=== PATIENT | female | born 1995 | race African-American/Black ===

== ENCOUNTER 2016-07-18 09:13 | Emergency (ER) | payer OTHER ==
[~2016-07-18] VITALS: Ht 165.1 cm; Wt 150.0 kg
[~2016-07-18 09:13] MED LIST: BIOT1CAP8 PO; PRENTAB26 PO; [UNRECOGNIZED DRUG - CODE] PO
[2016-07-18 09:15] VITALS: TEMP 36.7; Ht 165.1 cm; Wt 150.0 kg
[2016-07-18] MEDS ORDERED: HYDR-3763 PO (10:22)
--- NOTE | 2016-07-18 10:38 | DIAGNOSTIC IMAGING REPORT ---
LEFT KNEE 3 VIEWS CLINICAL HISTORY: Fall with left knee pain. FINDINGS: AP, crosstable lateral, and sunrise views of the left knee are obtained. No prior studies are available for comparison at the time of dictation. The skeletal structures are well mineralized. No fracture is seen. The joint spaces of the knee are well-maintained. A calcified fabella is noted. No large joint effusion is identified. Mild prepatellar soft tissue edema is noted. IMPRESSION: Mild prepatellar soft tissue swelling. No fracture is identified. Electronically signed by: Tico Jeff M.D. 07/18/2016 10:37 AM Dictated Date/Time: 07/18/2016 10:36 AM
--- NOTE | 2016-07-18 11:37 | EMERGENCY ROOM VISIT NOTE ---
ED Visit Note First contact with patient: 09:20 Chief Complaint: LEFT Knee Injury History of Present Illness: This patient is a 21-year-old female who presents to the Emergency Department by private vehicle for evaluation of their LEFT Knee Injury. Patient states that they injured the knee while falling on the ice last evening striking the knee. They report no pain over the anterior aspect of the knee after landing directly on the knee. Pain is worse with ambulation. They deny any numbness or tingling into the distal extremity including the toes. They deny any pain extending into the affected foot or leg. Patient reports no previous fractures or surgeries of the affected knee. Patient rates her current discomfort as a 9/10. Patient has tried [id number]-[id number] medication and 1 Percocet for their pain with moderate relief of their symptoms. Medications: Reviewed and discussed with the patient. Allergies: No known allergies. PMH: No pertinent past medical history. 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 ROS: All pertinent positive and negative review of systems are appropriately documented in the History of Present Illness. Physical Exam: VITAL SIGNS - Vital signs and nursing notes were reviewed. GENERAL - 21-year-old female appearing her stated age and in noticeable discomfort throughout the exam. MUSCULOSKELETAL - LEFT knee without erythema, edema, and ecchymosis. Moderate tenderness to palpation appreciated over the anterior surface of the knee. +3/ 5 strength appreciated LEFT versus right secondary to patient discomfort. No posterior sag sign. RANGE OF MOTION: Greater than 90 Flexion with 0 Extension. PATELLAR APPREHENSION TEST: Positive reproduction of pain. VARUS/VALGUS STRESS: Unremarkable. HARPREET'S TEST: Without guarding. Strong Endpoint. ANTERIOR/POSTERIOR DRAWER TEST: Without guarding. Strong endpoint. NEUROLOGIC/VASCULAR - Neurovascularly intact distally with +3/5 dorsalis pedis pulses palpated bilaterally. Normal sensation to light and sharp touch appreciated distally. IMAGING: LEFT KNEE 3 VIEWS CLINICAL HISTORY: Fall with left knee pain. FINDINGS: AP, crosstable lateral, and sunrise views of the left knee are obtained. No prior studies are available for comparison at the time of dictation. The skeletal structures are well mineralized. No fracture is seen. The joint spaces of the knee are well-maintained. A calcified fabella is noted. No large joint effusion is identified. Mild prepatellar soft tissue edema is noted. IMPRESSION: Mild prepatellar soft tissue swelling. No fracture is identified. ED Course: Patient was seen and evaluated by myself. Patient was provided an ice pack for comfort. X-rays were obtained of the affected knee. Imaging results as above. Images were discussed and reviewed with the patient who acknowledges understanding. Patient was provided an Zkee Wrap. Patient will utilize over-the- counter medication for pain control at home. Patient educated on worrisome symptoms for return visit to the emergency department. Patient with follow-up with their primary care provided in 4-5 days if their symptoms are not improving. Patient discharged to home in good condition. Impression: LEFT Knee Contusion, Fall Discharge Instructions: You have been treated in the Emergency Department for Knee Contusion. For pain control, you can use the following ujuq-bkj-jezuofs medicines (if >12 yo): - Regular strength (325mg/tab) Tylenol (acetaminophen) 2 tabs every 4-6 hours as needed. Do not exceed 12 tablets in a 24 hour period. Avoid taking more than 4 grams (4000 mg) of Tylenol per day. This includes any other sources of acetaminophen you may take on a regular basis. - Regular strength (200 mg/tab) Advil (ibuprofen) 1-2 tabs every 4-6 hours as needed. Do not exceed a dose of 3200 mg per day. If this is a recent injury (<24 hrs), ice can be applied to the area of pain for the first 3 days to help decrease pain and inflammation. Ice massages can be performed by freezing water in a paper cup, peeling back the cup to expose the ice and then massaging over the affected area. Use the Zeke wrap for comfort for the next 4-5 days. Return to the Emergency Department if your current symptoms worsen despite treatment course outlined above. Current/Historical Medications Scheduled Beta Carotene (Beta Carotene), 1 CAP PO DAILY Biotin (Biotin), 1 CAP PO DAILY Scheduled PRN Hydrocodon/Acetaminophen 10MG/300MG (Vicodin Hp (10MG/300MG)), 1 TAB PO for Pain Allergies Coded Allergies: No Known Allergies (Unverified , 03/05/16) Vital Signs Date Time Temp Pulse Resp B/P Pulse Ox O2 Delivery O2 Flow Rate FiO2 07/18/16 11:51 88 20 102/50 100 07/18/16 09:15 36.7 85 16 135/84 98 Room Air Departure Information Impression Primary Impression: Knee contusion Dispostion Home / Self-Care Condition GOOD Referrals No Doctor, Assigned (PCP) Patient Instructions [facility] Additional Instructions You have been treated in the Emergency Department for Knee Contusion. For pain control, you can use the following bbxm-hbr-cyxjhbn medicines (if >12 yo): - Regular strength (325mg/tab) Tylenol (acetaminophen) 2 tabs every 4-6 hours as needed. Do not exceed 12 tablets in a 24 hour period. Avoid taking more than 4 grams (4000 mg) of Tylenol per day. This includes any other sources of acetaminophen you may take on a regular basis. - Regular strength (200 mg/tab) Advil (ibuprofen) 1-2 tabs every 4-6 hours as needed. Do not exceed a dose of 3200 mg per day. If this is a recent injury (<24 hrs), ice can be applied to the area of pain for the first 3 days to help decrease pain and inflammation. Ice massages can be performed by freezing water in a paper cup, peeling back the cup to expose the ice and then massaging over the affected area. Use the Zeke wrap for comfort for the next 4-5 days. Return to the Emergency Department if your current symptoms worsen despite treatment course outlined above. Problem Qualifiers Primary Impression: Knee contusion Encounter type: initial encounter Laterality: left Qualified Codes: S80.02XA - Contusion of left knee, initial encounter
[2016-07-18 11:51] VITALS: BP 102/50; PULSE 88; O2SAT 100
[2016-07-19] MEDS ORDERED: TRAM-10 PO (09:54)
== END 2016-07-18 11:55 | disposition home or self-care (01) ==
LOC: C.EDB 09:14 → C.EDC 11:55
DX: S80.02XA Contusion of left knee, initial encounter (principal); W00.0XXA Fall on same level due to ice and snow, initial encounter

== ENCOUNTER 2016-07-19 09:19 | Emergency (ER) | payer OTHER ==
[~2016-07-19] VITALS: Ht 165.1 cm; Wt 105.0 kg
[~2016-07-19 09:19] MED LIST changes: +HYDR-3763 PO; -PRENTAB26 PO
[2016-07-19 09:35] VITALS: BP 126/79; PULSE 84; TEMP 36.8; O2SAT 99; Ht 165.1 cm; Wt 105.0 kg
[2016-07-19] MEDS ORDERED: TRAM-10 PO (09:54)
--- NOTE | 2016-07-19 11:15 | EMERGENCY ROOM VISIT NOTE ---
History First contact with patient: 09:35 Chief Complaint: LEG PAIN,LEG INJURY Stated Complaint: LEFT LEG PAIN History of Present Illness The patient is a 21 year old female who presents to the Emergency Room with complaints of persistent pain with a left leg/knee injury that was evaluated in our facility on . The patient was instructed to take ibuprofen and Tylenol for pain. She reports that this is not helping. She does report worsening pain with weightbearing. She has been using an Zeke wrap on the knee as well. She denies any pain extending into the distal aspect of the left lower extremity, and also denies any paresthesias or numbness. She rates her discomfort a 7 out of 10. Review of Systems 10 system review was performed and was negative except for pertinent positives and negatives as indicated in history of present illness Past Medical/Surgical History Medical Problems: (1) No Known Active Medical Problems Family History No pertinent family history Social History Smoking Status: Current Every Day Smoker Drug Use: none Marital Status: single Housing Status: lives with roommate Occupation Status: [employer] student Current/Historical Medications Scheduled PRN Hydrocodon/Acetaminophen 10MG/300MG (Vicodin Hp (10MG/300MG)), 1 TAB PO for Pain Tramadol (Ultram), 1-2 TAB PO Q4H PRN for Pain Allergies Coded Allergies: No Known Allergies (Unverified , 07/19/16) Physical Exam Vital Signs Date Time Temp Pulse Resp B/P Pulse Ox O2 Delivery O2 Flow Rate FiO2 07/19/16 09:35 36.8 84 16 126/79 99 Room Air Pain Rating (0-10): 6.0 Physical Exam CONSTITUTIONAL: Healthy and well nourished. Alert and oriented X 3 with positive affect. HEENT: Normocephalic, atraumatic. Pupils equal, round and reactive. NECK: Full active range of motion without discomfort. MUSCULOSKELETAL: Examination of the left knee does not show any joint effusion, obvious ecchymosis or erythema. She has generalized tenderness to palpation about the knee, and worsening pain with range of motion. Pedal pulses are intact. No dependent edema appreciated. INTEGUMENTARY: No rash or other significant dermatologic conditions noted. NEUROLOGIC: No focal neurologic deficits noted. Left lower extremity is sensory intact. Medical Decision & Procedures ED Course Patient history and physical exam were performed. Nurse's notes were reviewed. I did review imaging from her last visit which was normal. The patient was dispensed crutches to remain weightbearing as tolerated. She was encouraged to continue intermittently apply ice to the knee and leg. Ibuprofen and Tylenol in alternating fashion for baseline pain relief. The patient received a prescription for Ultram as needed for additional pain relief. She was encouraged to follow-up with orthopedics if symptoms are not improving within the next 5-7 days. The patient was happy with plan of care, voiced understanding of all discharge instructions, and rated her pain a 3 out of 10 at the inclusion of my exam. Medical Decision Impression Primary Impression: Left knee injury Departure Information Dispostion Home / Self-Care Condition GOOD Prescriptions Tramadol (Ultram) 50 Mg Tab 1-2 TAB PO Q4H Y for Pain, #20 TAB For Initial Treatment Prov: Eze Slater PA 07/19/16 Referrals Joe Caraballo D.O. Forms HOME CARE DOCUMENTATION FORM, IMPORTANT VISIT INFORMATION Patient Instructions My [facility] Additional Instructions Continue to intermittently apply ice and elevate the knee for swelling and pain. Use crutches to avoid limping. Ibuprofen 800 mg and/or Tylenol 1000 mg every 8 hours. You may also alternate these medications for more effective pain relief: Ibuprofen --4 HRS--> Tylenol --4 HRS--> ibuprofen --4 HRS--> Tylenol .... Ultram if needed for worse pain. Follow-up with orthopedics (Dr. Caraballo) if symptoms are not improving within the next 5-7 days. Problem Qualifiers Primary Impression: Left knee injury Encounter type: subsequent encounter Qualified Codes: S89.92XD - Unspecified injury of left lower leg, subsequent encounter
== END 2016-07-19 10:08 | disposition home or self-care (01) ==
LOC: C.EDB 09:20
DX: S89.92XD Unspecified injury of left lower leg, subsequent encounter (principal); F17.200 Nicotine dependence, unspecified, uncomplicated; X58.XXXD Exposure to other specified factors, subsequent encounter

== ENCOUNTER 2016-08-15 18:33 | Emergency (ER) | payer OTHER ==
[~2016-08-15] VITALS: Ht 165.1 cm; Wt 105.6 kg
[~2016-08-15 18:33] MED LIST changes: -BIOT1CAP8 PO; +TRAM-10 PO; -[UNRECOGNIZED DRUG - CODE] PO
[2016-08-15 18:39] VITALS: TEMP 36.7; Ht 165.1 cm; Wt 105.6 kg
[2016-08-15] MEDS ORDERED: ONDANSETRON INJ 2 MG/ML 2 ML VIAL IV STA (18:46)
[2016-08-15] MEDS ORDERED: SODIUM CHLORIDE 0.9% 1000ML 1,000 ML IV STA (18:46)
--- NOTE | 2016-08-15 18:57 | EMERGENCY ROOM VISIT NOTE ---
History Report prepared by Lindy: Joan Mensah Under the Supervision of: Mel SanabriaO. 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 She currently rates her discomfort as a 5/10 in severity. The patient states that she has a history of a previous miscarriage in February of last year. She states that she was 6-7 weeks along at that time. The patient states that she has been trying to get and states that she had a positive urine test in mid July. She states that her first medical radiation tech appointment is 09/04. The patient states that her last menstrual cycle was 06/21/16. Today she notes nausea , vomiting, fatigue, abdominal cramping, and vaginal discharge. The patient denies any vaginal bleeding. Source of History: patient Onset: july Position: other (global) Symptom Intensity: 5/10 Quality: other (vomiting) Timing: other Associated Symptoms: + abdominal pain (cramping), + fatigue, + nausea Note: Associated Symptoms: Vaginal discharge Review of Systems See HPI for pertinent positives & negatives. A total of 10 systems reviewed and were otherwise negative. Past Medical & Surgical Medical Problems: (1) No Known Active Medical Problems Family History No pertinent family history Social History Smoking Status: Former Smoker Drug Use: none Marital Status: single Housing Status: lives with roommate Occupation Status: [email or web address] student Current/Historical Medications Scheduled Biotin (Biotin), 1 TAB PO DAILY Allergies Coded Allergies: No Known Allergies (Unverified , 08/15/16) Physical Exam Vital Signs Date Time Temp Pulse Resp B/P Pulse Ox O2 Delivery O2 Flow Rate FiO2 08/15/16 21:05 77 18 131/78 100 Room Air 08/15/16 20:13 70 20 122/74 100 Room Air 08/15/16 18:39 36.7 84 18 157/78 100 Room Air Physical Exam HEENT: Head - normocephalic and atraumatic Pupils are equal, round, and reactive to light. Extraocular eye muscles are intact, and sclera are anicteric. Nose - moist nasal mucosa without discharge. Mouth - moist buccal mucosa. Oropharynx is nonerythematous and there is no tonsillar exudate or edema noted. Neck: Supple; no JVD, nuchal rigidity, cervical lymphadenopathy. Heart: Regular rate and rhythm. There is a normal S1 and S2 with no murmurs, clicks, or gallops appreciated. Lungs: Clear to auscultation bilaterally with no wheezes, rales, or rhonchi. Abdomen: Soft, completely nontender, nondistended, with good bowel sounds. There are no palpable pulsatile masses or hepatosplenomegaly. There is no guarding, rigidity, or rebound noted. Extremities: No evidence of cyanosis, clubbing, or edema. There are easily palpable peripheral pulses. Skin: warm and dry with good turgor and no rashes. Medical Decision & Procedures ER Provider Diagnostic Interpretation: US results as stated below per my review and radiologist interpretation: ultrasound ECTOPIC CLINICAL HISTORY: eval for ectopic TECHNIQUE: Ultrasound COMPARISON STUDY: None FINDINGS: Single, viable intrauterine . Heart rate is confirmed at 150 bpm. Estimated gestational age is 13 weeks 4 days. Maternal cervix is 3.8 cm and is closed. IMPRESSION: Single, viable intrauterine of approximately 13 weeks 4 days gestational age Electronically signed by: Daniel Hadley M.D. 08/15/2016 8:45 PM Dictated Date/Time: 08/15/2016 8:43 PM Laboratory Results 08/15/16 18:55 Red Blood Count 4.98, Mean Corpuscular Volume 74.5, Mean Corpuscular Hemoglobin 24.5, Mean Corpuscular Hemoglobin Concent 32.9, Mean Platelet Volume 9.3, Neutrophils (%) (Auto) 62.0, Lymphocytes (%) (Auto) 30.6, Monocytes (%) (Auto) 6.5, Eosinophils (%) (Auto) 0.5, Basophils (%) (Auto) 0.2, Neutrophils # (Auto) 3.79, Lymphocytes # (Auto) 1.87, Monocytes # (Auto) 0.40, Eosinophils # (Auto) 0.03, Basophils # (Auto) 0.01 08/15/16 18:55 Test 08/15/16 18:55 White Blood Count 6.11 K/uL (4.8-10.8) Red Blood Count 4.98 M/uL (4.2-5.4) Hemoglobin 12.2 g/dL (12.0-16.0) Hematocrit 37.1 % (37-47) Mean Corpuscular Volume 74.5 fL (80-100) Mean Corpuscular Hemoglobin 24.5 pg (25-34) Mean Corpuscular Hemoglobin Concent 32.9 g/dl (32-36) Platelet Count 363 K/uL (130-400) Mean Platelet Volume 9.3 fL (7.4-10.4) Neutrophils (%) (Auto) 62.0 % Lymphocytes (%) (Auto) 30.6 % Monocytes (%) (Auto) 6.5 % Eosinophils (%) (Auto) 0.5 % Basophils (%) (Auto) 0.2 % Neutrophils # (Auto) 3.79 K/uL (1.4-6.5) Lymphocytes # (Auto) 1.87 K/uL (1.2-3.4) Monocytes # (Auto) 0.40 K/uL (0.11-0.59) Eosinophils # (Auto) 0.03 K/uL (0-0.5) Basophils # (Auto) 0.01 K/uL (0-0.2) RDW Standard Deviation 45.5 fL (36.4-46.3) RDW Coefficient of Variation 16.8 % (11.5-14.5) Immature Granulocyte % (Auto) 0.2 % Immature Granulocyte # (Auto) 0.01 K/uL (0.00-0.02) Anion Gap 9.0 mmol/L (3-11) Est Creatinine Clear Calc Drug Dose 165.0 ml/min Estimated GFR () 145.8 Estimated GFR (Non- 125.8 BUN/Creatinine Ratio 10.3 (10-20) Calcium Level 9.0 mg/dl (8.5-10.1) Total Bilirubin 0.2 mg/dl (0.2-1) Direct Bilirubin < 0.1 mg/dl (0-0.2) Aspartate Amino Transf (AST/SGOT) 13 U/L (15-37) Alanine Aminotransferase (ALT/SGPT) 14 U/L (12-78) Alkaline Phosphatase 49 U/L (45-117) Total Protein 7.7 gm/dl (6.4-8.2) Albumin 3.1 gm/dl (3.4-5.0) Human Chorionic Gonadotropin, Quant 57554 mIU/mL Laboratory results per my review. Medications Administered Medications (Trade) Dose Ordered Sig/Raul Route Start Time Stop Time Status Last Admin Dose Admin Sodium Chloride (Nss 1000ml) 1,000 ml @ 999 mls/hr Q1H1M STAT IV 08/15/16 18:46 08/15/16 19:46 DC 08/15/16 19:05 999 MLS/HR Ondansetron HCl (Zofran Inj) 4 mg NOW STAT IV 08/15/16 18:46 08/15/16 18:48 DC 08/15/16 19:05 4 MG Procedure IV normal saline hydration IV Zofran ED Course 1844: Past medical records reviewed. The patient was evaluated in room B3B. A complete history and physical exam was performed. An IV lock was initiated and labs are drones above. 1845: Ordered Zofran Inj 4 mg IV, Sodium Chloride 1000 ml @ 999 mls/hr IV. The patient's quantitative hCG was high enough for her to go for ultrasound. 2052: I reevaluated the patient and she had complete relief of her nausea with the Zofran. I discussed all the exam findings with her and I discussed the treatment plan. She verbalized complete understanding and agreement. She is ready to go home. Medical Decision The patient is a 21 year old female who presents to the ED with vomiting. Differential diagnosis includes Hyperemesis gravidarum, dehydration, gastritis, morning sickness. Lab interpretation: quantitative 67,[id number], normal renal function, normal glucose, normal LFTs, no leukocytosis. This is a 21-year-old female patient who is who presents with persistent nausea and vomiting. The patient is taking vitamins. She has had no care but has an appointment scheduled in mid August. The patient denies any vaginal bleeding but does have some vaginal discharge. The patient does have an intrauterine at approximately 14 weeks 3 days. She received IV Zofran here in the ER and her nausea has subsided. I've encouraged her to continue taking vitamins and keep herself well- hydrated. She should take small frequent meals. 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 Impression Primary Impression: Nausea and vomiting Additional Impression: Second trimester Scribe Attestation The scribe's documentation has been prepared under my direction and personally reviewed by me in its entirety. I confirm that the note above accurately reflects all work, treatment, procedures, and medical decision making performed by me. Departure Information Dispostion Home / Self-Care Referrals No Doctor, Assigned (PCP) Forms HOME CARE DOCUMENTATION FORM, IMPORTANT VISIT INFORMATION Patient Instructions My [facility], Preg 2nd Trimester Coping, Vomiting - [facility] Additional Instructions Rest. Take plenty of clear liquids and a bland diet. Take vitamins Follow up with OB Problem Qualifiers
[2016-08-15] MEDS ORDERED: BIOT1TAB5 PO (19:07)
[2016-08-15 19:10] LABS: BASO % 0.2 %; BASO ABS # 0.01 K/uL (0-0.2); COMPLETE YES; EOS % 0.5 %; HEMATOCRIT 37.1 % (37-47); IG% 0.2 %; LYMPH % 30.6 %; LYMPH ABS # 1.87 K/uL (1.2-3.4); MEAN CELL VOLUME 74.5 fL (80-100); MEAN CORPUSCULAR HEMOGLOBIN 24.5 pg (25-34); MEAN CORPUSCULAR HGB CONC 32.9 g/dl (32-36); MEAN PLATELET VOLUME 9.3 fL (7.4-10.4); MONO % 6.5 %; PLATELET COUNT 363 K/uL (130-400); RED BLOOD COUNT 4.98 M/uL (4.2-5.4); WHITE BLOOD COUNT 6.11 K/uL (4.8-10.8)
[2016-08-15 19:26] LABS: ALT/SGPT 14 U/L (12-78); AST/SGOT 13 U/L (15-37); BLOOD UREA NITROGEN 7 mg/dl (7-18); BUN/CREATININE RATIO 10.3 (10-20); CARBON DIOXIDE 25 mmol/L (21-32); CHLORIDE 104 mmol/L (98-107); CREATININE 0.64 mg/dl (0.60-1.20); GLUCOSE 99 mg/dl (70-99); POTASSIUM 3.3 mmol/L (3.5-5.1); SODIUM 138 mmol/L (136-145)
[2016-08-15 19:28] LABS: ALKALINE PHOSPHATASE 49 U/L (45-117)
--- NOTE | 2016-08-15 20:46 | DIAGNOSTIC IMAGING REPORT ---
ultrasound ECTOPIC CLINICAL HISTORY: eval for ectopic TECHNIQUE: Ultrasound COMPARISON STUDY: None FINDINGS: Single, viable intrauterine . Heart rate is confirmed at 150 bpm. Estimated gestational age is 13 weeks 4 days. Maternal cervix is 3.8 cm and is closed. IMPRESSION: Single, viable intrauterine of approximately 13 weeks 4 days gestational age Electronically signed by: Daniel Hadley M.D. 08/15/2016 8:45 PM Dictated Date/Time: 08/15/2016 8:43 PM
[2016-08-15 21:05] VITALS: BP 131/78; PULSE 77; O2SAT 100
== END 2016-08-15 21:07 | disposition home or self-care (01) ==
LOC: C.EDB 18:34
DX: O21.9 Vomiting of pregnancy, unspecified (principal); Z3A.14 14 weeks gestation of pregnancy; Z87.891 Personal history of nicotine dependence; Z79.899 Other long term (current) drug therapy